=== PATIENT | male | born 1975 | race Caucasian/White ===

== ENCOUNTER → 2023-01-26 | Outpatient (CLI) | payer OTHER ==
--- NOTE | 2023-01-27 12:39 | CT ---
EXAMINATION TYPE: CT abdomen pelvis w con DATE OF EXAM: 01/26/2023 COMPARISON: NONE HISTORY: 48-year-old male LLQ abdominal pain TECHNIQUE: Contiguous axial scanning of the abdomen and pelvis following administration of 70 ml Isov ue 300 IV contrast. Delayed images through the kidneys and coronal/sagittal reconstructions performe d. CT DLP: 631.7 mGycm Automated exposure control for dose reduction was used. FINDINGS: Heart normal size without pericardial effusion. Lung bases clear without pleural effusion. Liver normal size without focal lesion. Portal venous system is patent. No biliary ductal dilatation. There is a 1.5 cm peripherally calcified gallstone. No abnormal gallbladder distention or inflammator y change. Adrenal glands, right kidney, spleen, and pancreas within normal limits. There is a minimally lobulated 2.5 cm cortical cyst at the lower pole of the left kidney which appear s benign. No dilated small bowel, free fluid, or free air. No mesenteric or retroperitoneal lymphadenopathy. Normal appendix. Oral contrast progressed into the proximal sigmoid. No pericolonic inflammatory park ge. No significant stool burden. Prostate gland measures normal at 3.6 cm wide. No abnormal fluid collection in the pelvis or pelvic l ymphadenopathy. Punctate pelvic phleboliths. No abnormal fluid collection the pelvis or pelvic lympha denopathy. Bones: Mild degenerative change at the hips. Degenerative bony ankylosis right SI joint. No osseous d estructive process. IMPRESSION: NO ACUTE INFLAMMATORY PROCESS IDENTIFIED IN THE ABDOMEN OR PELVIS TO EXPLAIN THE PATIENT'S SYMPTOMS. A 1.5 CM GALLSTONE IS PRESENT.
== END | disposition home or self-care (01) ==
LOC: RADCTMAIN 13:31
PROVIDERS: ATTEND Family Medicine
DX: K80.20 Calculus of gallbladder without cholecystitis without obstruction (principal)
CPT/HCPCS: 74177; Q9967

== ENCOUNTER → 2024-02-22 | Outpatient (CLI) | payer BC ==
--- NOTE | 2024-02-22 14:13 | XR ---
EXAMINATION TYPE: XR wrist complete LT DATE OF EXAM: 02/22/2024 1:40 PM CLINICAL INDICATION:Male, 49 years old with history of [id number] LT WRIST PAIN; COMPARISON: None TECHNIQUE: XR wrist complete LT; examined in the Frontal, navicular, lateral, and oblique. FINDINGS: No acute osseous pathology, joint dislocation, or joint effusion. No evidence of any soft tissue swelling is seen. IMPRESSION: No acute osseous pathology.
== END | disposition home or self-care (01) ==
LOC: RADXRYALE 13:30
PROVIDERS: ATTEND Physician Assistant Medical
DX: M25.532 Pain in left wrist (principal)